=== PATIENT | female | born 1975 | race Caucasian/White ===

== ENCOUNTER 2020-01-19 15:32 | Outpatient (CLI) | payer OTHER, SELFPAY ==
[2020-01-19 15:56] LABS: Basophils Absolute Auto 0.02 K/mm3 (0.00-0.10); Basophils Percent Auto 0.3 % (0.0-1.0); Eosinophils Percent Auto 1.5 % (1.0-6.0); Hematocrit 35.9 % (35.0-49.0); Immature Granulocyte Absolute 0.01 K/mm3 (0.00-0.00); Immature Granulocyte Percent A 0.1 % (0.0-0.0); Lymphocytes Absolute Auto 2.35 K/mm3 (1.10-4.50); Lymphocytes Percent Auto 34.8 % (18.0-42.0); Mean Corpuscular HGB Conc 33.4 g/dL (32.0-36.0); Mean Corpuscular Hemoglobin 32.6 pg (27.0-31.0); Mean Corpuscular Volume 97.6 fL (78.0-102.0); Mean Platelet Volume 8.7 fl (9.2-11.8); Monocytes Absolute Auto 0.42 K/mm3 (0.10-0.90); Monocytes Percent Auto 6.2 % (2.0-11.0); Neutrophils Absolute Auto 3.9 K/mm3 (1.7-7.2); Neutrophils Percent Auto 57.1 % (50.0-70.0); Platelet Count Result 234 K/mm3 (150-420); Red Blood Count 3.68 M/mm3 (4.20-5.40); Red Cell Distribution Width 12.1 % (11.6-14.4); White Blood Count 6.8 K/mm3 (4.8-10.8)
[2020-01-19 16:51] LABS: Alanine Aminotransferase 17 U/L (14-59); Alkaline Phosphatase 57 U/L (46-116); Anion Gap 12.8 mmol/L (7-16); Aspartate Amino Transferase 16 U/L (15-37); Bilirubin,Total 0.2 mg/dL (0.00-1.00); Blood Urea Nitrogen 13 mg/dL (7-18); Carbon Dioxide 29 mmol/L (21-32); Chloride 104 mmol/L (98-108); Estimated Glomerular Filt Rate > 60; Glucose 78 mg/dL (70-99); Osmolality Calculated 293 mOsm/kg (285-295); Potassium 3.8 mmol/L (3.5-5.1); Sodium 142 mmol/L (136-145); Thyroid Stimulating Hormone 0.49 uIU/mL (0.36-3.74); Total Protein 7.2 g/dL (6.4-8.2)
[2020-01-19 16:56] LABS: Calcium 8.6 mg/dL (8.5-10.1)
[2020-01-25 10:30] LABS: Vitamin D 25 Hydroxy 58 ng/mL (30-100)
== END 2020-01-19 15:33 | disposition home or self-care (01) ==
PROVIDERS: PCP Internal Medicine
DX: G35 Multiple sclerosis (principal); G43.119 Migraine with aura, intractable, without status migrainosus; R53.83 Other fatigue; Z79.899 Other long term (current) drug therapy; R42 Dizziness and giddiness
CPT/HCPCS: 36415; 80053; 82306; 84443; 85025

== ENCOUNTER 2020-11-13 08:58 | Outpatient (CLI) | payer OTHER, SELFPAY ==
--- NOTE | ~2020-11-13 | MM_ITS ---
EXAMINATION: MM screening [facility] BI w jenna HISTORY: Screening TECHNIQUE: Craniocaudal and mediolateral oblique 3-D tomosynthesis images were obtained and synthetic 2-D images were generated. CAD analysis was submitted and interpreted. COMPARISON: 01/07/2018 BREAST PARENCHYMAL COMPOSITION: The breasts are heterogeneously dense, which may obscure small masses . FINDINGS: There are developing asymmetries in the upper outer quadrant of the right breast. The left breast is stable without evidence for malignancy. IMPRESSION: 1. Developing asymmetries in the upper inner quadrant of the right breast. 2. Additional mammographic views and possible breast ultrasound are recommended. BI-RADS Category 0: Incomplete: Needs additional imaging evaluation. Reviewed, dictated and finalized at location A. IMPRESSION: 1. Developing asymmetries in the upper inner quadrant of the right breast. 2. Additional mammographic views and possible breast ultrasound are recommended . BI-RADS Category 0: Incomplete: Needs additional imaging evaluation.
== END 2020-11-13 08:59 | disposition home or self-care (01) ==
LOC: CHSIMG 09:00
PROVIDERS: PCP Internal Medicine; Visit Provider Obstetrics & Gynecology
DX: Z12.31 Encounter for screening mammogram for malignant neoplasm of breast (principal)
CPT/HCPCS: 77063; 77067

== ENCOUNTER 2020-11-24 09:50 | Outpatient (CLI) | payer OTHER, SELFPAY ==
--- NOTE | ~2020-11-24 | MMUS_ITS ---
EXAMINATION: MM diagnostic mammo unilat RT, US breast RT limited HISTORY: Possible masses in the upper inner quadrant of the right breast TECHNIQUE: Additional 3-D tomosynthesis images of the right breast were performed and synthetic 2-D i mages were generated. CAD analysis was submitted and interpreted. High resolution limited right breas t ultrasound was performed. COMPARISON: 11/13/2020, 01/07/2018 FINDINGS: MAMMOGRAPHIC FINDINGS: There is a 7 mm oval, obscured, equal density mass in the middle/posterior third of the upper inner b reast at the 2:00 location 5 cm deep to the nipple. With spot compression, this has an appearance sim ilar to the 2018 comparison although the breast was more heterogeneously dense at that time. No suspi cious calcification or architectural distortion are identified. ULTRASOUND: There is an 8 mm x 3 mm oval, circumscribed, parallel, hypoechoic mass with no posterior features or internal vascularity there are cysts at the 1:00 location 7 cm from the nipple. There are cysts in th e upper inner quadrant of the breast which measure up to 8 mm. IMPRESSION: 1. Probably benign right breast mass. 2. Recommend 6 month follow-up right diagnostic mammogram and ultrasound. BI-RADS category 3, probably benign findings. Reviewed, dictated and finalized at location A. IMPRESSION: 1. Probably benign right breast mass. 2. Recommend 6 month follow-up right diagnostic mammogram and ultrasound. BI-RADS category 3, probably benign findings.
== END 2020-11-24 09:51 | disposition home or self-care (01) ==
LOC: CHSIMG 09:52
PROVIDERS: PCP Internal Medicine; Visit Provider Obstetrics & Gynecology
DX: R92.8 Other abnormal and inconclusive findings on diagnostic imaging of breast (principal)
CPT/HCPCS: 76642; 77065

== ENCOUNTER 2021-08-06 15:00 | Outpatient (CLI) | payer OTHER, SELFPAY ==
[2021-08-06 16:45] LABS: Influenza A QL RT-PCR Negative (Negative); Influenza B QL RT-PCR Negative (Negative); SARS-CoV-2 RNA PCR Negative (Negative)
== END 2021-08-06 15:01 | disposition home or self-care (01) ==
LOC: CHSLAB 15:05
PROVIDERS: PCP Internal Medicine; Visit Provider Internal Medicine
DX: J06.9 Acute upper respiratory infection, unspecified (principal); Z20.822 Contact with and (suspected) exposure to COVID-19
CPT/HCPCS: 87502; C9803; U0003; U0005

== ENCOUNTER 2022-01-11 14:31 | Outpatient (CLI) | payer OTHER, SELFPAY ==
--- NOTE | 2022-01-11 15:26 | ECHO_ITS ---
Patient Info Name: Vanda Murphy Age: 46 years : 1975 Gender: Female Ht: 60 in Wt: 109 lbs BSA: 1.45 m2 HR: 72 bpm BP: 112 / 61 mmHg Technical Quality: Good Exam Date: 01/11/2022 2:41 PM Exam Location: [facility] Patient Status: Outpatient Admit Date: 01/11/2022 Staff Ordering Physician: Gildardo Choudhury MD Fish Fryer: Nick Beavers RDCS, RT Attending Provider: Gildardo Cohudhury MD Exam Type: CA echo doppler color flow Study Info Indications R01.1 - Cardiac murmur, unspecified Complete two-dimensional, color flow and Doppler transthoracic echocardiogram is performed. Strain analysis performed. Summary 1. Complete two-dimensional, color flow and Doppler transthoracic echocardiogram is performed. 2. Left ventricular chamber dimension is normal. 3. Left ventricular systolic function is normal, estimated at 60-65%. 4. The left ventricular diastolic function is normal. 5. E/e' 8 is minimally elevated. Left Ventricle E/e' 8 is minimally elevated. Left ventricular chamber dimension is normal. Left ventricular systolic function is normal, estimated at 60-65%. The left ventricular diastolic function is normal. Right Ventricle Right ventricular systolic function is normal and with normal TAPSE 1.7 cm. Right ventricular chamber dimension is normal. Left Atria Left atrial chamber dimension is normal. Right Atria Right atrial chamber dimension is normal. Aortic Valve The aortic valve is trileaflet. There is no aortic valve stenosis. There is no aortic valve regurgitation. Pulmonic Valve There is no pulmonic regurgitation. Mitral Valve There is no mitral valve stenosis. There is no mitral valve regurgitation. Tricuspid Valve There is no tricuspid valve regurgitation. Pericardium/Pleural There is no pericardial effusion. Inferior Vena Cava Normal inferior vena cava with >50% collapse upon inspiration consistent with normal right atrial pressure, 5 mmHg. Aorta The aortic root size at the sinus of Valsalva is normal. Left Ventricular Outflow Tract Name Value Normal LVOT 2D LVOT Diameter 1.9 cm LVOT Doppler LVOT Peak Velocity 81 cm/s LVOT Peak Gradient 3 mmHg LVOT Mean Gradient 1 mmHg LVOT VTI 16 cm LVOT VTI/AV VTI Ratio 0.8 LVOT Stroke Volume 42 ml Mitral Valve Name Value Normal MV Doppler MV [place] 335 cm/s2 MV PHT 61 ms MV Area (PHT) 3.6 cm2 4.0-5.0 MV Diastolic Function MV E Peak Velocity 71 cm/s MV A Peak Velocity 54 cm/s
== END 2022-01-11 14:32 | disposition home or self-care (01) ==
LOC: CHSIMG 14:31
PROVIDERS: PCP Internal Medicine; Visit Provider Internal Medicine
DX: I34.1 Nonrheumatic mitral (valve) prolapse (principal)
CPT/HCPCS: 93306

== ENCOUNTER 2022-10-11 12:49 | Outpatient (CLI) | payer OTHER, SELFPAY ==
--- NOTE | ~2022-10-11 | MR_ITS ---
EXAMINATION: MR thoracic spine wo/w con DATE: 10/11/2022 14:07 INDICATION: Multiple sclerosis. TECHNIQUE: Magnetic resonance imaging (MRI) of the thoracic spine was performed without and with 10 m L MultiHance intravenous contrast. COMPARISON: None FINDINGS: There is 8 degrees dextrocurvature of cervical spine. Vertebral body heights and interverte bral disc heights are normal. The discs do not extend beyond the endplate margins. There is multileve l mild facet joint osteoarthritis. No neural foraminal stenosis or central canal stenosis. The spinal cord signal intensity is normal. The conus medullaris is at L1. There is a 10 mm nodule in the thyro id, likely not clinically significant. IMPRESSION: 1. Normal spinal cord. Reviewed, dictated and finalized at location A. C PROMOTER IMPRESSION: 1. Normal spinal cord.
--- NOTE | ~2022-10-11 | MR_ITS ---
EXAMINATION: MR cervical spine wo/w con DATE: 10/11/2022 14:07 INDICATION: Multiple sclerosis. TECHNIQUE: Magnetic resonance imaging (MRI) of the cervical spine was performed without and with 10 m L MultiHance intravenous contrast. COMPARISON: Cervical spine MRI 11/09/2009 FINDINGS: There is mild kyphosis of cervical spine. Vertebral body heights and intervertebral disc he ights are normal. The spinal cord signal intensity is normal. The following disc levels are specifica lly discussed: C2-C3: There is a central protrusion. There is mild left uncovertebral joint osteoarthritis. There is mild bilateral facet joint osteoarthritis. There is no neural foraminal stenosis. There is mild cent ral canal stenosis. C3-C4: The disc does not extend beyond the endplate margin. There is mild left uncovertebral joint os teoarthritis. There is mild bilateral facet joint osteoarthritis. There is no neural foraminal stenos is. There is no central canal stenosis. C4-C5: The disc does not extend beyond the endplate margin. There is no uncovertebral joint osteoarth ritis. There is mild bilateral facet joint osteoarthritis. There is no neural foraminal stenosis. The re is no central canal stenosis. C5-C6: There is a central extrusion. There is no uncovertebral joint osteoarthritis. There is mild bi lateral facet joint osteoarthritis. There is no neural foraminal stenosis. There is mild central edouard l stenosis. C6-C7: The disc does not extend beyond the endplate margin. There is no uncovertebral joint osteoarth ritis. There is no facet joint osteoarthritis. There is no neural foraminal stenosis. There is no barbie tral canal stenosis. C7-T1: The disc does not extend beyond the endplate margin. There is no uncovertebral joint osteoarth ritis. There is mild bilateral facet joint osteoarthritis. There is no neural foraminal stenosis. The re is no central canal stenosis. IMPRESSION: 1. Normal spinal cord. 2. Mild cervical spondylosis. Reviewed, dictated and finalized at location A. E[employer] INS[employer] CLAIMS EXAMINER
== END 2022-10-11 12:50 | disposition home or self-care (01) ==
LOC: ANHIMG 12:50
PROVIDERS: PCP Internal Medicine
DX: G35 Multiple sclerosis (principal); M47.812 Spondylosis without myelopathy or radiculopathy, cervical region
CPT/HCPCS: 72156; 72157; A9577

== ENCOUNTER 2022-11-15 11:56 | Outpatient (CLI) | payer OTHER, SELFPAY ==
--- NOTE | ~2022-11-15 | MM_ITS ---
EXAMINATION: MM screening [facility] BI w jenna HISTORY: Screening mammogram TECHNIQUE: Craniocaudal and mediolateral oblique 3-D tomosynthesis images were obtained and synthetic 2-D images were generated. CAD analysis was submitted and interpreted. COMPARISON: 11/24/2020 diagnostic right mammogram and limited right breast ultrasound examination 11/13/2020, 01/07/2018 bilateral screening mammogram examinations BREAST PARENCHYMAL COMPOSITION: The breasts are heterogeneously dense, which may obscure small masses . FINDINGS: There is an 8.7 x 9.5 mm circumscribed low-density opacity with halo sign in the lower mid left breast, with mammographic features typical for benign process, likely simple cyst. There is no e vidence of suspicious mass, calcification, or architectural distortion to suggest malignancy in eithe r breast. There has been no suspicious interval change. IMPRESSION: 1. Benign findings. No mammographic evidence of malignancy. 2. Recommend routine screening mammography in one year. BI-RADS Category 2: Benign finding(s). Reviewed, dictated and finalized at location A.
== END 2022-11-15 11:57 | disposition home or self-care (01) ==
LOC: CHSIMG 11:57
PROVIDERS: PCP Internal Medicine; Visit Provider Obstetrics & Gynecology
DX: Z12.31 Encounter for screening mammogram for malignant neoplasm of breast (principal)
CPT/HCPCS: 77063; 77067

== ENCOUNTER 2023-05-19 12:13 | Outpatient (CLI) | payer OTHER, SELFPAY ==
[2023-05-19 12:31] LABS: Appearance Urine Clear (Clear); Basophils Absolute Auto 0.02 K/mm3 (0.00-0.10); Basophils Percent Auto 0.3 % (0.0-1.0); Bilirubin Urine Negative (Negative); Blood Urine Trace-Intact (Negative); Color Urine Light Yellow (Yellow); Eosinophils Absolute Auto 0.28 K/mm3 (0.02-0.50); Eosinophils Percent Auto 4.6 % (1.0-6.0); Glucose Urine UA Negative (Negative); Hematocrit 36.9 % (35.0-49.0); Hemoglobin 12.4 g/dL (12.0-15.0); Immature Granulocyte Absolute 0.01 K/mm3 (0.00-0.00); Immature Granulocyte Percent A 0.2 % (0.0-0.0); Ketones Urine Negative (Negative); Leukocyte Esterase Ur 1+ (Negative); Lymphocytes Percent Auto 42.6 % (18.0-42.0); Mean Corpuscular HGB Conc 33.6 g/dL (32.0-36.0); Mean Corpuscular Hemoglobin 32.3 pg (27.0-31.0); Mean Corpuscular Volume 96.1 fL (78.0-102.0); Mean Platelet Volume 8.3 fl (9.2-11.8); Monocytes Absolute Auto 0.35 K/mm3 (0.10-0.90); Monocytes Percent Auto 5.7 % (2.0-11.0); Neutrophils Absolute Auto 2.8 K/mm3 (1.7-7.2); Neutrophils Percent Auto 46.6 % (50.0-70.0); Nitrate Urine Negative (Negative); Platelet Count Result 226 K/mm3 (150-420); Protein Urine Negative (Negative); Red Blood Count 3.84 M/mm3 (4.20-5.40); Red Cell Distribution Width 12.4 % (11.6-14.4); White Blood Count 6.1 K/mm3 (4.8-10.8)
[2023-05-19 12:37] LABS: Add Urine Microscopic? YES; Squamous Epithelial Cell Urine Moderate /hpf (Few)
[2023-05-19 12:38] LABS: Bacteria Urine 1+ /hpf
[2023-05-19 13:27] LABS: Alanine Aminotransferase 15 U/L (14-59); Albumin Level 4.1 g/dL (3.4-5.0); Alkaline Phosphatase 71 U/L (46-116); Anion Gap 10 mmol/L (8-16); Aspartate Amino Transferase 16 U/L (15-37); Bilirubin,Total 0.3 mg/dL (0.00-1.00); Blood Urea Nitrogen 10 mg/dL (7-18); Carbon Dioxide 29 mmol/L (21-32); Chloride 104 mmol/L (98-108); Cholesterol 188 mg/dL (0-200); Estimated Glomerular Filt Rate > 60; Glucose 80 mg/dL (70-99); HDL Direct 49 mg/dL (40-60); LDL Cholesterol Calculated 111 mg/dL (<130); Osmolality Calculated 294 mOsm/kg (285-295); Potassium 3.7 mmol/L (3.5-5.1); Sodium 143 mmol/L (136-145); Thyroid Stimulating Hormone 0.07 uIU/mL (0.36-3.74); Total Protein 7.5 g/dL (6.4-8.2); Triglycerides 142 mg/dL (0-150)
[2023-05-19 17:38] LABS: Free T3 3.77 pg/mL (2.18-3.98); Free T4 Free Thyroxine 1.23 ng/dL (0.76-1.46)
== END 2023-05-19 12:14 | disposition home or self-care (01) ==
LOC: CHSLAB 12:16
PROVIDERS: PCP Internal Medicine; Visit Provider Internal Medicine
DX: E78.2 Mixed hyperlipidemia (principal); R94.6 Abnormal results of thyroid function studies
CPT/HCPCS: 36415; 80053; 80061; 81001; 84439; 84443; 84481; 85025

== ENCOUNTER 2023-05-23 07:04 | Outpatient (CLI) | payer OTHER, SELFPAY ==
--- NOTE | ~2023-05-23 | US_ITS ---
Thyroid ultrasound. Clinical History: Hyperthyroidism Findings: Real-time sonography of the thyroid gland was performed. The right lobe measures 4.4 x 1.4 x 1.5 cm. The left lobe measures 4.8 x 1.2 x 1.4 cm. The isthmus is 3 mm in AP diameter. There is a mixed solid and cystic, spongiform nodule at the right lower pole measuring 1.6 cm in maxi mum diameter. Impression: 1.6 cm spongiform nodule at the right lower pole, compatible with benign nodule.. Reviewed, dictated and finalized at location M. Impression: 1.6 cm spongiform nodule at the right lower pole, compatible with benign nodule ..
[2023-05-23 07:27] LABS: Appearance Urine Clear (Clear); Bilirubin Urine Negative (Negative); Blood Urine Trace-Intact (Negative); Color Urine Light Yellow (Yellow); Glucose Urine UA Negative (Negative); Ketones Urine Negative (Negative); Leukocyte Esterase Ur Trace (Negative); Nitrate Urine Negative (Negative); Protein Urine Negative (Negative); Specific Grav Ur <= 1.005 (1.010-1.020); Urobilinogen Urine 0.2 mg/dL (0.2-1.0)
[2023-05-23 07:34] LABS: Add Urine Microscopic? YES; Bacteria Urine Trace /hpf; RBC Urine 0-2 /hpf (0-2); Squamous Epithelial Cell Urine Moderate /hpf (Few)
[2023-05-27 04:24] LABS: Thyroid Peroxidase Antibodies <1 IU/mL (<9)
[2023-05-27 13:21] LABS: Thyroid Stimulating Immunoglob <89 % baseline (<140)
== END 2023-05-23 07:05 | disposition home or self-care (01) ==
LOC: CHSIMG 07:07
PROVIDERS: PCP Internal Medicine; Visit Provider Internal Medicine
DX: Z12.31 Encounter for screening mammogram for malignant neoplasm of breast (principal); E05.90 Thyrotoxicosis, unspecified without thyrotoxic crisis or storm; E04.1 Nontoxic single thyroid nodule; R82.90 Unspecified abnormal findings in urine; N39.0 Urinary tract infection, site not specified
CPT/HCPCS: 36415; 76536; 81001; 84445; 86376; 86800; 87086

== ENCOUNTER 2023-06-23 08:47 | Outpatient (CLI) | payer OTHER, SELFPAY ==
[2023-06-23 09:34] LABS: Free T3 4.03 pg/mL (2.18-3.98); Free T4 Free Thyroxine 1.33 ng/dL (0.76-1.46)
[2023-06-23 09:41] LABS: Thyroid Stimulating Hormone < 0.01 uIU/mL (0.36-3.74)
== END 2023-06-23 08:48 | disposition home or self-care (01) ==
LOC: CHSLAB 08:49
PROVIDERS: PCP Internal Medicine; Visit Provider Internal Medicine
DX: E05.90 Thyrotoxicosis, unspecified without thyrotoxic crisis or storm (principal)
CPT/HCPCS: 36415; 84439; 84443; 84481

== ENCOUNTER 2023-07-07 07:24 | Outpatient (CLI) | payer OTHER, SELFPAY ==
--- NOTE | ~2023-07-07 | NM_ITS ---
EXAMINATION: NM thyroid scan w uptake DATE: 07/08/2023 14:53 INDICATION: Hyperthyroidism. Right thyroid lobe nodule. COMPARISON: Ultrasound dated 05/23/2023 TECHNIQUE: 237 microcuries I-123 was administered orally in capsule form. Scintigraphic images of th e thyroid gland were obtained at 24 hours. Thyroid uptake was calculated by the technologist. FINDINGS: The thyroid uptake is 2% (normal 10-30%), there is some asymmetry to the uptake in the thyroid lobes with slightly greater uptake on the right than the left. The uptake in the right lower lobe appears t o involve a significantly larger region than would be explained by the nodule at the lower pole. IMPRESSION: 1. Markedly decreased 24-hour iodine uptake which could be seen with subacute thyroiditis, excess io dine intake and Perla's disease. Reviewed, dictated and finalized at location A. R MAKER IMPRESSION: 1. Markedly decreased 24-hour iodine uptake which could be seen with subacute thyroiditis, excess iodine intake and Perla's disease.
== END 2023-07-07 07:25 | disposition home or self-care (01) ==
LOC: CHSIMG 07:28
PROVIDERS: PCP Internal Medicine; Visit Provider Internal Medicine
DX: E05.90 Thyrotoxicosis, unspecified without thyrotoxic crisis or storm (principal); R91.1 Solitary pulmonary nodule
CPT/HCPCS: 78014; A9516

== ENCOUNTER 2024-05-10 08:15 | Outpatient (CLI) | payer OTHER, SELFPAY ==
--- NOTE | ~2024-05-10 | US_ITS ---
EXAMINATION: US thyroid DATE: 05/10/2024 08:59 INDICATION: Thyroid nodule. TECHNIQUE: Multiple ultrasound images of the thyroid were obtained. COMPARISON: Ultrasound 05/23/2023 FINDINGS: The right thyroid lobe measures 4.0 x 1.6 x 1.7 cm. The left thyroid lobe measures 4.7 x 1.1 x 1.3 c m. In the right thyroid lobe, there is a 17 mm mixed cystic and solid, hypoechoic, wider than tall n odule with smooth margin without echogenic foci (TI-RADS TR3), stable from 05/23/23. IMPRESSION: 1. Stable thyroid nodule. Thyroid ultrasound is recommended in 2 years. Reviewed, dictated and finalized at location A.
--- NOTE | ~2024-05-10 | MM_ITS ---
EXAMINATION: MM screening [facility] BI w jenna HISTORY: Screening mammogram TECHNIQUE: Craniocaudal and mediolateral oblique 3-D tomosynthesis images were obtained and synthetic 2-D images were generated. CAD analysis was submitted and interpreted. COMPARISON: 11/15/2022, 11/13/2020 BREAST PARENCHYMAL COMPOSITION:Dense: The breasts are heterogeneously dense, which may obscure small masses. FINDINGS: Stable low-density central left breast mass. There is a new probable low-density ovoid 1.5 cm mass centrally in the right breast. No suspicious metallic opacification in either breast.. IMPRESSION: Probable 1.5 cm low-density central, slightly inner right breast mass. Spot compression views and ul trasound recommended for further evaluation. BI-RADS Category 0: Incomplete: Needs additional imaging evaluation. Reviewed, dictated and finalized at [facility]. IMPRESSION: Probable 1.5 cm low-density central, slightly inner right breast mass. Spot co mpression views and ultrasound recommended for further evaluation. BI-RADS Category 0: Incomplete: Needs additional imaging evaluation.
[2024-05-10 08:28] LABS: Basophils Absolute Auto 0.04 K/mm3 (0.00-0.10); Basophils Percent Auto 0.4 % (0.0-1.0); Eosinophils Absolute Auto 0.39 K/mm3 (0.02-0.50); Eosinophils Percent Auto 4.2 % (1.0-6.0); Hematocrit 32.4 % (35.0-49.0); Hemoglobin 11.3 g/dL (12.0-15.0); Immature Granulocyte Absolute 0.06 K/mm3 (0.00-0.00); Immature Granulocyte Percent A 0.6 % (0.0-0.0); Lymphocytes Absolute Auto 2.05 K/mm3 (1.10-4.50); Lymphocytes Percent Auto 22.2 % (18.0-42.0); Mean Corpuscular HGB Conc 34.9 g/dL (32-36); Mean Corpuscular Hemoglobin 33.5 pg (27.0-31.0); Mean Corpuscular Volume 96.1 fL (78.0-102.0); Mean Platelet Volume 8.4 fl (9.2-11.8); Monocytes Absolute Auto 0.38 K/mm3 (0.10-0.90); Monocytes Percent Auto 4.1 % (2.0-11.0); Neutrophils Absolute Auto 6.33 K/mm3 (1.70-7.20); Neutrophils Percent Auto 68.5 % (50.0-70.0); Platelet Count Result 231 K/mm3 (150-420); Red Blood Count 3.37 M/mm3 (4.20-5.40); Red Cell Distribution Width 12.6 % (11.6-14.4); White Blood Count 9.3 K/mm3 (4.8-10.8)
[2024-05-10 17:06] LABS: Alanine Aminotransferase 19 U/L (14-59); Albumin Level 3.8 g/dL (3.4-5.0); Alkaline Phosphatase 66 U/L (46-116); Anion Gap 8 mmol/L (4-12); Aspartate Amino Transferase 20 U/L (15-37); Bilirubin,Total 0.3 mg/dL (0.00-1.00); Blood Urea Nitrogen 8 mg/dL (7-18); Calcium 8.8 mg/dL (8.5-10.1); Carbon Dioxide 29 mmol/L (21-32); Chloride 105 mmol/L (98-108); Estimated Glomerular Filt Rate > 60; Free T3 2.07 pg/mL (2.18-3.98); Free T4 Free Thyroxine 0.86 ng/dL (0.76-1.46); Glucose 80 mg/dL (70-99); Osmolality Calculated 291 mOsm/kg (285-295); Potassium 3.9 mmol/L (3.5-5.1); Sodium 142 mmol/L (136-145); Thyroid Stimulating Hormone 0.91 uIU/mL (0.36-3.74); Total Protein 6.8 g/dL (6.4-8.2)
[2024-05-13 07:48] LABS: Thyroid Peroxidase Antibodies <1 IU/mL (<9)
== END 2024-05-10 08:16 | disposition home or self-care (01) ==
PROVIDERS: PCP Internal Medicine; Visit Provider Nurse Practitioner Women's Health
DX: Z12.31 Encounter for screening mammogram for malignant neoplasm of breast (principal); E04.1 Nontoxic single thyroid nodule; R92.8 Other abnormal and inconclusive findings on diagnostic imaging of breast
CPT/HCPCS: 36415; 76536; 77063; 77067; 80053; 84439; 84443; 84481; 85025; 86376

== ENCOUNTER 2024-06-04 08:52 | Outpatient (CLI) | payer OTHER, SELFPAY ==
--- NOTE | ~2024-06-04 | MMUS_ITS ---
EXAMINATION: MM diagnostic kvng RT w jenna, US breast RT complete HISTORY: Follow-up right breast mass TECHNIQUE: Additional 3-D tomosynthesis images of the right breast were performed and synthetic 2-D i mages were generated. CAD analysis was submitted and interpreted. High resolution complete right [address] [facility] ultrasound was performed. COMPARISON: Comparison to multiple prior studies sequentially, with oldest reviewed study dated 05/2018. BREAST PARENCHYMAL COMPOSITION: Dense: The breasts are heterogeneously dense, which may obscure small masses FINDINGS: MAMMOGRAPHIC FINDINGS: There is an obscured mass in the upper inner quadrant of the right breast, posterior third which is o bscured by dense fibroglandular tissue. There are no suspicious calcifications or architectural disto rtion. ULTRASOUND: Complete US of all 4 quadrants of the right breast/s and retroareolar region was reviewed. There are multiple cysts of the right breast, largest at 1:00 near the nipple measuring 3.6 x 2.2 x 1.2 cm, lik alesha corresponding to the area of mammographic concern. No suspicious solid masses are identified. IMPRESSION: 1. No evidence for malignancy in the right breast. Benign findings. 2. Routine yearly screening mammogram and regular clinical breast examination are recommended. BI-RADS Category 2: Benign finding(s). Reviewed, dictated and finalized at location B. IMPRESSION: 1. No evidence for malignancy in the right breast. Benign findings. 2. Routine yearly screening mammogram and regular clinical breast examination a re recommended. BI-RADS Category 2: Benign finding(s).
== END 2024-06-04 08:53 | disposition home or self-care (01) ==
PROVIDERS: PCP Internal Medicine; Visit Provider Nurse Practitioner Women's Health
DX: R92.8 Other abnormal and inconclusive findings on diagnostic imaging of breast (principal)
CPT/HCPCS: 76641; 77061; 77065; G0279

== ENCOUNTER 2024-07-26 08:52 | Outpatient (CLI) | payer OTHER, SELFPAY ==
--- NOTE | ~2024-07-26 | MR_ITS ---
EXAMINATION: MR brain/brain stem wo/w con DATE: 07/26/2024 09:45 INDICATION: Multiple sclerosis. TECHNIQUE: Magnetic resonance imaging (MRI) of the brain and brainstem was performed without and with 10 mL MultiHance intravenous contrast. COMPARISON: None. FINDINGS: There are greater than 15 total lesions of increased T2-weighted signal intensity in the br ain. Of these lesions, multiple are periventricular, multiple are juxtacortical, and none are infrate ntorial. None of the lesions enhance. There is a developmental venous anomaly in the right frontopari etal region. There is no acute ischemic infarct or intracranial hemorrhage. The ventricles are normal in size. The orbits are normal. There is mucosal thickening in the paranasal sinuses. There is depen dent fluid in the maxillary sinuses. The mastoid air cells are normal. IMPRESSION: 1. Cerebral white matter disease, consistent with multiple sclerosis. Reviewed, dictated and finalized at location A. ID CORN BREEDER
== END 2024-07-26 08:53 | disposition home or self-care (01) ==
PROVIDERS: PCP Internal Medicine
DX: R90.82 White matter disease, unspecified (principal); G35 Multiple sclerosis
CPT/HCPCS: 70553

== ENCOUNTER 2025-05-09 15:39 | Outpatient (CLI) | payer OTHER, SELFPAY ==
--- NOTE | ~2025-05-09 | MR_ITS ---
EXAMINATION: MR brain/brain stem wo/w con DATE: 05/09/2025 17:21 INDICATION: Multiple sclerosis. TECHNIQUE: Magnetic resonance imaging (MRI) of the brain and brainstem was performed without and with 11 mL MultiHance intravenous contrast. COMPARISON: Brain MRI 07/26/2024 FINDINGS: There is no acute ischemic infarct or intracranial hemorrhage. There are greater than 15 lesions of increased T2-weighted signal intensity in the brain. Of these lesions, multiple are periventricular, multiple are juxtacortical, and none are infratentorial. None of the lesions enhance. There is a developmental venous anomaly in the right frontoparietal region. The ventricles are normal in size. The orbits are normal. There is mucosal thickening in the paranasal sinuses. There is dependent fluid in left maxillary sinus. The mastoid air cells are normal. IMPRESSION: 1. Stable cerebral white matter disease, consistent with multiple sclerosis. Reviewed, dictated and finalized at location E.
--- NOTE | ~2025-05-09 | US_ITS ---
EXAMINATION: US thyroid DATE: 05/09/2025 16:31 INDICATION: Right thyroid nodule TECHNIQUE: Multiple ultrasound images of the thyroid were obtained. COMPARISON: 05/10/2024 FINDINGS: The right thyroid lobe measures 4.2 x 1.6 x 1.4 cm. The left thyroid lobe measures 4.3 x 1.5 x 1.0 cm. No significant change in size 1.9 cm wider than tall now nearly entirely cystic nodule with residual small hypoechoic solid component, smooth margins and without echogenic foci (TI-RADS 2, not suspicious, no FNA recommended). No new thyroid nodules identified. There is normal echotexture, echogenicity and vascular flow throughout the remainder of the thyroid gland. IMPRESSION: 1. Interval evolution of a 1.9 cm previously mixed solid and cystic TI RADS 3, currently nearly entirely cystic TI RADS 2 right thyroid nodule which requires no further follow-up or biopsy Reviewed, dictated and finalized at location A.
--- OUTSIDE RECORDS SUMMARY | 2025-05-09 15:47 | XMS_ITS | Clinical Summary ---
Author Organization [facility] B Address [address] [place] [address] Care Team Providers Care Particle Board Supervisor Name Role Phone Gildardo Choudhury MD Primary Care Provider [phone] Tonya Camacho MD Unavailable [phone] Allergies No known active allergies Medications ALPRAZolam (Xanax) 0.25 mg tablet Take 1 tablet (0.25 mg total) by mouth nightly as needed for anxiety 30 tablet 03/29/2020 Active ergocalciferol (VITAMIN D) 50,000 unit capsule Take 1 capsule (50,000 Units total) by mouth once a week 4 capsule 5 02/12/2023 Active Glatopa 40 mg/mL syringe INJECT 1 SYRINGE UNDER THE SKIN 3 TIMES A WEEK AT LEAST 48 HOURS APART 36 mL 1 01/11/2025 Active dextroamphetami ne-amphetamine (ADDERALL) 5 mg tablet Take 1 tablet (5 mg total) by mouth every morning 30 tablet 03/28/2025 Active Active Problems Problem Noted Date Diagnosed Date Mood disorder 03/29/2020 Vertigo 03/26/2019 Dizziness and giddiness 01/27/2018 Other fatigue 01/27/2018 Intractable migraine with aura without status mi grainosus 08/03/2013 Overview (12/06/2016): Migraine headache Multiple sclerosis 08/03/2013 Overview (08/13/2024): MS medication history: RRMS Symptom onset and diagnosis: 2009 1. Copaxone: 01/[id number] 2. Glatiramer acetate: 2020- Assessment & Plan (03/28/2025 11:45 AM CDT): The patient is presenting for follow up of multiple sclerosis. She reports that since her last visit she has been largely stable with no significant new neurological symptoms. She continues to take glatiramer acetate and reports no issues or side effects with the medication. She reports prominent ongoing fatigue which she describes as feeling tired all the time. She previously trialed modafinil which provided some relief but she was unable to continue it given insurance issues. She reports no other new notable symptoms and specifically denies any weakness and numbness. Her neurological exam shows no new neurological deficits. We discussed ongoing management of her multiple sclerosis. We reviewed her 2023 MRI compared to January 2022 MRI. In comparison, her 2023 MRI shows a new lesion in her right basal ganglia area and an increase in T2 signal in her left occipital lobe periatrial lesion. We discussed that it is possible she is having ongoing disease activity related to her MS that is not well-controlled with glatiramer acetate. I recommended changing to a medication with higher clinical efficacy for reducing relapses and new brain lesions. We discussed different categories of medication and specifically talked about CD20 medications, Ocrevus and Briumvi and oral medications, Zeposia and Vumerity. We discussed the side effects of all these different medications including infusion related reactions, increased risk of infection, heart block, flushing, and GI upset. I will provide the patient with pamphlets on these different medications instructed her to reach out if any questions come up. We discussed ongoing medication management for the patient's fatigue. Given her benefit from modafinil in the past I suspect she will benefit from fatigue treatment. We discussed Adderall as an option but acknowledged that she may also run a new insurance issues with this medication. I will send the prescription to the patient's pharmacy and start her on a low dose with plans to increase if she is experiencing a benefit without notable side effects. I will obtain an updated brain and cervical MRI in anticipation of starting a new disease modifying therapy. I will see the patient back in follow up and instructed her to reach out if any questions arise before next visit. We will obtain lab work today in preparation for starting a new disease modifying therapy. Will continue Xanax 0.25 mg as needed for the patient's anxiety which she reportedly takes infrequently. Anxiety disorder 08/03/2013 Overview (12/06/2016): Anxiety disorder Encounters Date Type Department Care Team Description 05/[place]2025 [place] [facility] [place] [address] [address] Jh Rodriguez MD 04/29/2025 [place] [facility] [place] [address] [address] Jh Rodriguez MD 04/11/2025 [place] [facility] [place] [address] [phone] Sarai Mccarty RN 03/28/2025 12:00 PM CDT Lab [address] [address] Vitamin D deficiency; Multiple sclerosis (HCC); Screening for viral disease 03/28/2025 11:00 AM CDT Office Visit [address] [address] Jh Rodriguez MD Multiple sclerosis (HCC) (Primary Dx); Vitamin D deficiency; Screening for viral disease from Last 3 Months Medical History Medical History Date Comments Multiple sclerosis (HCC) multipl e sclerosis Hx Other Medical anxiety disorde r Hx Other Medical vitamin D defic iency Hx Other Medical Headache, migra ine Family History Medical History Relation Name Comments Ovarian teratoma Cousin Squamous cell carcinoma Maternal Grandfather Oral Other Other No family histo ry of Multiple sclerosis; Relation Name Status Comments Cousin Maternal Grandfather Other Social History Tobacco Use Types Packs/Day Years Used Date Smoking Tobacco: Former Smokeless Tobacco: Former Tobacco Cessation:Counseling Given: Not Answered Comments:quit 05-17-2018 Alcohol Use Standard Drinks/Week Comments Yes 0 (1 standard drink = 0.6 oz pur e alcohol) occassional AUDIT-C Answer Date Recorded Q1: How often do you have a drink containing alc ohol? Monthly or less 07/30/2022 Average Number of Drinks Not on file 022 Q3: How often do you have si x or more drinks on one occasion? 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 Gender Identity Not on file Sexual Orientation Not on file Obstetrics History Last Filed Vital Signs Vital Sign Reading Time Taken Comments Blood Pressure 111/69 03/28/2025 10:33 AM CDT Pulse 73 03/28/2025 10:33 AM CDT Temperature 36.2 C (97.1 F) 03/28/2025 10:33 AM CDT Respiratory Rate 16 02/18/2022 10:42 AM CDT Oxygen Saturation 99% 03/28/2025 10:33 AM CDT Inhaled Oxygen Concentration - - Weight 54.4 kg (120 lb) 03/28/2025 10:33 AM CDT Height 152.4 cm (5') 03/28/2025 10:33 AM CDT Body Mass Index 23.44 03/28/2025 10:33 AM CDT Plan of Treatment Health Maintenance Due Date Last Done Comments Cervical Cancer Screening 1976 Colon Cancer Screening-Colonoscopy 1976 Depression Screening 1976 DTaP/Tdap/Td Vaccine (1 - Tdap) 1987 Hepatitis B Screening 1994 Regular Well Visit/Exam 18-64 1994 Breast Cancer Screening-Mammogram 10/22/2022 022 Influenza Vaccine (#1) 2025 Hepatitis C Screening Completed 03/28/2025 Pneumococcal vaccine <65 Aged Out No longer eligible based on patient's age to complete this topic Procedures Procedure Name Priority Date/Time Associated Diagnosis Comments REFLEX STRATIFY JCV AB INHIBITION Routine 03/28/2025 12:02 PM CDT EGFR Routine 03/28/2025 12:02 PM CDT Multiple sclerosis (HCC) DIFFERENTIAL AUTO Routine 03/28/2025 12: 02 PM CDT Multiple sclerosis (HCC) CBC WITH AUTO DIFFERENTIAL Routine 03/28/2025 12:02 PM CDT Multiple sclerosis (HCC) COMPREHENSIVE METABOLIC PANEL Routine 03/28/2025 12:02 PM CDT Multiple sclerosis (HCC) IMMUNOGLOBULIN PROFILE Routine 03/28/2025 12:02 PM CDT Multiple sclerosis (HCC) STRATIFY JCV(TM) AB W/REFLEX Routine 03/28/2025 12:02 PM CDT Multiple sclerosis (HCC) TB TEST, QUANTIFERON GOLD Routine 03/28/2025 12:02 PM CDT Multiple sclerosis (HCC) VITAMIN D 25 HYDROXY Routine 03/28/2025 12:02 PM CDT Vitamin D deficiency HEPATITIS B CORE ANTIBODY, TOTAL Routine 03/28/2025 12:02 PM CDT Screening for viral disease HEPATITIS PANEL, ACUTE Routine 03/28/2025 12:02 PM CDT Multiple sclerosis (HCC) VARICELLA ZOSTER ANTIBODY, IGG Routine 03/28/2025 12:02 PM CDT Multiple sclerosis (HCC) DIAGNOSTIC MAMMOGRAM BILATERAL W ANDERSON Schedule Routine, Read Routine (OP Routine) 10/22/2021 12:18 PM RETURNED ITEM CLERK Abnormal finding on breast imaging from Last 3 Months or Most Recently Relevant to Health Maintenance Results * REFLEX STRATIFY JCV AB INHIBITION (03/28/2025 12:02 PM CDT) JCV ab inhibition FINAL RSLT: NEGATIVE [facility] Comment: REFERENCE RANGE: NEGATIVE INTERPRETATION: Positive: Antibodies to JEWELL virus (JCV) detected indicating the patient has been exposed to JCV at an undetermined time Negative: Antibodies to JCV not detected Test Performed at: [employer] [address] [place] [address] PHIL LYON MD,PHD,VANESA Blood 03/28/2025 12:0 2 PM CDT 03/28/2025 3:16 PM CDT Jh Rodriguez MD LAB BLOOD ORDERABLES Final Result [facility] [address] Department [place] [address] [facility] * Immunoglobulin profile (03/28/2025 12:02 PM CDT) Pathologist [facility] Immunoglobulin G 1,024 700 - 1,600 mg/dL Immunoglobulin A 171 70 - 400 mg/dL [facility] Immunoglobulin M 68 40 - 230 mg/dL [facility] Blood 03/28/2025 12:0 2 PM CDT 03/28/2025 3:16 PM CDT Jh Rodriguez MD LAB BLOOD ORDERABLES Final Result Performing Organization Address City/[facility] Co de Phone Number [facility] [address] Department [place] [address] * eGFR (03/28/2025 12:02 PM CDT) [facility] eGFR >90 >=60 mL/min/1. 73 m2 Comment: Interpretive Data Reference Interval Normal >/= 90 mL/min/1.73m2 Mildly decreased* 60 - 89 mL/min/1.73m2 Mildly to moderately decreased 45 - 59 mL/min/1.73m2 Moderately to severely decreased 30 - 44 mL/min/1.73m2 Severely decreased 15 - 29 mL/min/1.73m2 Kidney Failure < 15 mL/min/1.73m2 *Relative to young adult level Estimated glomerular filtration rate is determined by the 2020 CKD-EPI equation recommended by the National Kidney Foundation (A Unifying Approach to GFR Estimation: Recommendations of the NKF-ASK Task Force on Reassessing the Inclusion of Race in Diagnosing Kidney Disease, JASN 2020). The CKD-EPI equation should not be used for patients with unstable renal function and has not been validated in children and those over 70. Current interpretive data was last reviewed 2021. Blood 03/28/2025 12:0 2 PM CDT 03/28/2025 3:16 PM CDT Jh Rodriguez MD LAB BLOOD ORDERABLES Final Result [facility] [address] Department [place] [address] * Differential, auto (03/28/2025 12:02 PM CDT) Neutrophil abs 3.94 1.50 - 6.50 K/cumm Imm gran abs 0.01 0.00 - 0.10 K/cumm [facility] Lymphocyte abs 2.42 0.80 - 3.30 K/cumm [facility] Monocyte abs 0.36 0.20 - 0.80 K/cumm [facility] Eosinophil abs 0.26 0.00 - 0.50 K/cumm [facility] Basophil abs 0.03 0.00 - 0.10 K/cumm [facility] Neutrophil pct 56.2 % [facility] Comment: Interpretive Data Percent cell count reference ranges are not reported, since discordance with absolute values may lead to misinterpretation of CBC data. Current Interpretive Data was last revised on 2017. Imm gran pct 0.1 % [facility] Comment: Interpretive Data Percent cell count reference ranges are not reported, since discordance with absolute values may lead to misinterpretation of CBC data. Current Interpretive Data was last revised on 2017. Lymphocyte pct 34.5 % [facility] Comment: Interpretive Data Percent cell count reference ranges are not reported, since discordance with absolute values may lead to misinterpretation of CBC data. Current Interpretive Data was last revised on 2017. Monocyte pct 5.1 % [facility] Comment: Interpretive Data Percent cell count reference ranges are not reported, since discordance with absolute values may lead to misinterpretation of CBC data. Current Interpretive Data was last revised on 2017. Eosinophil pct 3.7 % [facility] Comment: Interpretive Data Percent cell count reference ranges are not reported, since discordance with absolute values may lead to misinterpretation of CBC data. Current Interpretive Data was last revised on 2017. Basophil pct 0.4 % [facility] Comment: Interpretive Data Percent cell count reference ranges are not reported, since discordance with absolute values may lead to misinterpretation of CBC data. Current Interpretive Data was last revised on 2017. Blood 03/28/2025 12:0 2 PM CDT 03/28/2025 3:12 PM CDT us Jh Rodriguez MD LAB BLOOD ORDERABLES Final Result [facility] [address] Department of [employer] [place] [address] * (ABNORMAL) Stratify JCV(TM) antibody w/ reflex (03/28/2025 12:02 PM CDT) JCV Antibody INDETERMI DAWNA(A) [facility] Comment: See Inhibition Assay result below for the final antibody result. Index interpretive criteria: <0.20 negative 0.20-0.40 indeterminate >0.40 positive INTERPRETATION Negative: Antibodies to JCV not detected. Indeterminate: Low level reactivity detected, see Inhibition Assay result below for the final antibody result. Positive: Antibodies to JEWELL virus (JCV) detected indicating the patient has been exposed to JCV at an undetermined time. The STRATIFY JCV(R) DxSelect(TM) Antibody Test is an enzyme-linked immunosorbent assay (ASIF) designed to detect JCV antibodies to help identify individuals who have been exposed to the virus. Samples with low level reactivity in the detection assay are retested in a confirmation (inhibition) assay to confirm presence or absence of JCV-specific antibodies. Retrospective analyses of post marketing data from various sources, including observational studies and spontaneous reports obtained worldwide, suggest that the risk of developing PML may be associated with relative levels of serum anti-JCV antibody as measured by anti-JCV antibody index.(1) (1) TYSABRI(natalizumab)US Prescribing Information Test Performed at: [facility] [employer] [facility] [employer] [facility] [address] [place] [address] PHIL LYON MD,PHD,VANESA JCV Index Value 0.26(H) [facility] Blood 03/28/2025 12:0 2 PM CDT 03/28/2025 3:16 PM CDT Jh Rodriguez MD LAB BLOOD ORDERABLES Final Result Performing Organization Address City/[facility]/ZIP Co de Phone Number [facility] [address] Department [place] [address] [facility] * TB test, quantiferon gold (03/28/2025 12:02 PM CDT) [facility] Quantiferon TB Gold Negative Negative [facility] Comment: No interferon-gamma response to M. tuberculosis antigens was detected. Latent infection with M. tuberculosis is unlikely. A single negative result does not exclude infection with M. tuberculosis. In patients at high risk for M.tuberculosis infection, a second test should be considered in accordance with the 2017 ATS/IDSA/CDC Clinical Practice Guidelines for Diagnosis of Tuberculosis in Adults and Children [Lewinsohn DM et. al. Clin. Infect. Dis. 2017;64(2):111-115]. The reference range for the 'TB1 Ag minus Nil Result' and 'TB2 Ag minus Nil Result' is an Interferon-gamma level <0.35 IU/mL. TB-Nil 0.01 IUnits/mL [facility] TB2-Nil 0.01 IUnits/mL [facility] Mitogen-Nil 9.96 IUnits/mL [facility] NIL 0.04 IUnits/mL [facility] Comment: Test Performed by: [place] [address] Freedom Of Information Officer: Jimmy Boyd Ph.D.; CLIA# [id number] Blood 03/28/2025 12:0 2 PM CDT 03/29/2025 8:57 AM CDT Jh Rodriguez MD LAB BLOOD ORDERABLES Final Result Performing Organization Address [facility]/ZIP Co de Phone Number [facility] [address] Department [place] [address] [facility] * (ABNORMAL) CBC with auto differential (03/28/2025 12:02 PM CDT) [facility] WBC 7.02 3.80 - 9.90 K/cumm Hgb 11.7(L) 11.9 - 15.5 g/dL [facility] Hct 34.4(L) 35.6 - 45.5 % [facility] Plt 290 150 - 400 K/cumm [facility] MPV 8.7(L) 9.1 - 12.3 fL [facility] RBC 3.58(L) 3.90 - 5.20 M/cumm [facility] MCV 96.1 81.3 - 96.4 fL [facility] MCH 32.7 27.1 - 33.3 pg [facility] MCHC 34.0 32.3 - 35.7 g/dL [facility] RDW CV 12.6 11.1 - 14.9 % [facility] RDW SD 44.0 35.7 - 48.1 fL [facility] NRBC abs 0.00 0.00 - 0.01 K/cumm [facility] Blood 03/28/2025 12:0 2 PM CDT 03/28/2025 3:12 PM CDT Jh Rodriguez MD LAB BLOOD ORDERABLES Final Result [facility] [address] Department [place] [address] * Hepatitis panel, acute Blood (03/28/2025 12:02 PM CDT) [facility] Hep A IgM Nonreactive Nonreactive Comment: Interpretive Data: If Hep A IgM Ab is reported as Equivocal, a new sample should be drawn in two weeks for testing. Current interpretive data was last revised on 19. Hep B core IgM Nonreactive Nonreactive [facility] Comment: Interpretive Data If HepB Core IgM Ab is reported as Equivocal, a new sample should be drawn in two weeks for testing. Current interpretive data was last revised on 19. Hep C Ab Nonreactive Nonreactive [facility] Comment: Interpretive Data Nonreactive: Antibodies to HCV not detected. Does NOT exclude the possibility of recent exposure to HCV. Equivocal: Equivocal for HCV antibodies. Supplemental molecular testing will be automatically performed to determine infection status in accordance with current CDC screening recommendations. Reactive: Positive for HCV antibodies. This may represent current or past HCV infection. Supplemental molecular testing will be automatically performed to determine current infection status in accordance with current CDC screening recommendations. Interpretive data was last revised on 2019. HepBsAg Nonreactive Nonreactive [facility] Blood 03/28/2025 12:0 2 PM CDT 03/28/2025 3:14 PM CDT Jh Rodriguez MD LAB MICROBIOLOGY - GE NERAL ORDERABLES Final Result Performing Organization Address City/[facility]/ZIP Co de Phone Number [facility] [address] Department [place] [address] * Hepatitis B core antibody, total Blood (03/28/2025 12:02 PM CDT) Pathologist [facility] Hep B core IgG/IgM Nonreactive Nonreactive Comment:Testing performed by : [facility], [address] [place]., [address] Blood 03/28/2025 12:0 2 PM CDT 03/28/2025 7:16 PM CDT Jh Rodriguez MD LAB MICROBIOLOGY - GE NERAL ORDERABLES Final Result [facility] [address] Department of [employer] [place] [address] * Vitamin D 25 hydroxy (03/28/2025 12:02 PM CDT) Vitamin D 25-OH 44 30 - 80 ng/mL Blood 03/28/2025 12:0 2 PM CDT 03/28/2025 3:16 PM CDT Jh Rodriguez MD LAB BLOOD ORDERABLES Final Result Performing Organization Address City/[facility]/ZIP Co de Phone Number [facility] [address] [facility] [employer] [place] [address] * Varicella Zoster IgG antibody Blood (03/28/2025 12:02 PM CDT) [facility] VZV IgG Reactive Reactive Comment: Reactive: Results suggest response to immunization or prior exposure to the virus. Testing performed by: [facility], [address] [place] [address]., [address] Blood 03/28/2025 12:0 2 PM CDT 03/28/2025 7:16 PM CDT Jh Rodriguez MD LAB MICROBIOLOGY - GE NERAL ORDERABLES Final Result Performing Organization Address [facility] Co de Phone Number [facility] [address] Department of [employer] [place] [address] * (ABNORMAL) Comprehensive metabolic panel (03/28/2025 12:02 PM CDT) [facility] Sodium 141 135 - 145 mmol/L Potassium, pl 4.2 3.3 - 4.9 mmol/L [facility] Chloride 105 97 - 110 mmol/L [facility] CO2 24 22 - 32 mmol/L [facility] Anion gap 12 2 - 15 mmol/L [facility] BUN 8 6 - 25 mg/dL [facility] Creatinine 0.49(L) 0.60 - 1.10 mg/dL [facility] Glucose 78 70 - 199 mg/dL [facility] Comment: Interpretive Data Fasting glucose >/= 126 mg/dl is diagnostic for diabetes. Fasting is defined as no caloric intake for at least 8 hours. Fasting glucose between 100 mg/dl to 125 mg/dl is diagnostic of prediabetes. In a patient with classic symptoms of hyperglycemia or hyperglycemic crisis, a random glucose >/= 200 mg/dl is diagnostic for diabetes. In the absence of unequivocal hyperglycemia, results should be confirmed by repeat testing. The classification and Diagnosis of Diabetes Diabetes Care 2021; 46: S19-S40. Current interpretive data was last revised 2022. Calcium 9.6 8.5 - 10.3 mg/dL [facility] Bilirubin, total 0.3 0.1 - 1.2 mg/dL [facility] Protein, pl 7.4 6.5 - 8.5 g/dL [facility] Albumin 4.5 3.5 - 5.0 g/dL [facility] Alk phos 72 40 - 130 Units/L [facility] ALT 21 7 - 45 Units/L [facility] AST 29 10 - 45 Units/L [facility] Blood 03/28/2025 12:0 2 PM CDT 03/28/2025 3:16 PM CDT us Jh Rodriguez MD LAB BLOOD ORDERABLES Final Result [facility] [address] Department [place] [address] * Diagnostic Mammogram Bilateral W Anderson (10/22/2021 12:18 PM RETURNED ITEM CLERK) Anatomical Region Laterality Modality Breast Bilateral Mammography 10/22/2021 12:4 6 PM RETURNED ITEM CLERK Impressions 10/22/2021 12:54 PM RETURNED ITEM CLERK 1. Stable RIGHT breast mass which may represent a cluster of cysts. Recommend follow-up ultrasound in 12 months to document continued stability. 2. No evidence of malignancy in the LEFT breast. OVERALL FINAL ASSESSMENT: BI-RADS Category 3: Probably Benign. RECOMMENDATION: Recommend follow-up diagnostic breast imaging in 12 months with targeted RIGHT breast ultrasound. Please note, at this time, patient will be due for annual BILATERAL examination. Dictated by: Su Castelan MD The radiology attending physician has personally reviewed this study, and had reviewed and/or edited this written report and agrees with it. Electronically signed by: Daly Bates M.D. Narrative 10/22/2021 12:54 PM RETURNED ITEM CLERK EXAMINATION: BILATERAL DIGITAL DIAGNOSTIC MAMMOGRAM INCLUDING CAD AND BILATERAL DIGITAL BREAST TOMOSYNTHESIS; RIGHT BREAST SONOGRAM HISTORY: 46-year-old woman presents for 10 month follow-up of probably benign RIGHT breast mass. She is also due for her annual BILATERAL examination. COMPARISON: Prior mammograms dating back to 01/07/2018. Right breast ultrasound 01/01/2021. TECHNIQUE: Full field digital mammographic views of BOTH breasts were performed, including computer aided detection (CAD) and BILATERAL digital breast tomosynthesis (DBT). Directed ultrasound evaluation of the RIGHT breast was performed. BREAST PARENCHYMAL COMPOSITION: The breasts are extremely dense, which lowers the sensitivity of mammography. MAMMOGRAM FINDINGS: There are no suspicious masses, areas of architectural distortion or malignant appearing calcifications identified in EITHER breast. There are bilateral, round and oval, partially circumscribed and partially obscured masses, a benign mammographic pattern. SONOGRAM FINDINGS: Targeted sonographic evaluation of the RIGHT breast 1 o'clock position 7 cm from the nipple demonstrates a stable oval hypoechoic/anechoic mass with absent internal vascularity and mild posterior acoustic enhancement measuring 0.7 x 0.3 x 0.8 cm, previously measuring 0.6 x 0.3 x 0.7 cm. Procedure Note Daly Bates MD - 10/22/2021 EXAMINATION: BILATERAL DIGITAL DIAGNOSTIC MAMMOGRAM INCLUDING CAD AND BILATERAL DIGITAL BREAST TOMOSYNTHESIS; RIGHT BREAST SONOGRAM HISTORY: 46-year-old woman presents for 10 month follow-up of probably benign RIGHT breast mass. She is also due for her annual BILATERAL examination. COMPARISON: Prior mammograms dating back to 01/07/2018. Right breast ultrasound 01/01/2021. TECHNIQUE: Full field digital mammographic views of BOTH breasts were performed, including computer aided detection (CAD) and BILATERAL digital breast tomosynthesis (DBT). Directed ultrasound evaluation of the RIGHT breast was performed. BREAST PARENCHYMAL COMPOSITION: The breasts are extremely dense, which lowers the sensitivity of mammography. MAMMOGRAM FINDINGS: There are no suspicious masses, areas of architectural distortion or malignant appearing calcifications identified in EITHER breast. There are bilateral, round and oval, partially circumscribed and partially obscured masses, a benign mammographic pattern. SONOGRAM FINDINGS: Targeted sonographic evaluation of the RIGHT breast 1 o'clock position 7 cm from the nipple demonstrates a stable oval hypoechoic/anechoic mass with absent internal vascularity and mild posterior acoustic enhancement measuring 0.7 x 0.3 x 0.8 cm, previously measuring 0.6 x 0.3 x 0.7 cm. IMPRESSION: 1. Stable RIGHT breast mass which may represent a cluster of cysts. Recommend follow-up ultrasound in 12 months to document continued stability. 2. No evidence of malignancy in the LEFT breast. OVERALL FINAL ASSESSMENT: BI-RADS Category 3: Probably Benign. RECOMMENDATION: Recommend follow-up diagnostic breast imaging in 12 months with targeted RIGHT breast ultrasound. Please note, at this time, patient will be due for annual BILATERAL examination. Dictated by: Su Castelan MD The radiology attending physician has personally reviewed this study, and had reviewed and/or edited this written report and agrees with it. Electronically signed by: Daly Bates M.D. Sheridan Rooney MD PhD IMG MAMMO PROCEDURES Final Result from Last 3 Months or Most Recently Relevant to Health Maintenance Insurance [facility] Care Teams Particle Board Supervisor Relationship Specialty Start Date End Date Gildardo Choudhury MD PCP - General Internal Medicine 01/27/18 Tonya Camacho MD [id number] [facility] [address] [place] [address] Referring Physician Obstetrics and Gynecology 11/27/20
--- OUTSIDE RECORDS SUMMARY | 2025-05-09 15:47 | XMS_ITS | Clinical Summary ---
Author Organization [facility] Address [address] [place] [id number] Care Team Providers Care Airport Security Screener Name Role Phone Unavailable Primary Care Provider Unavailabl e Social History Tobacco Use Types Packs/Day Years Used Date Smoking Tobacco: Never Assessed Comments Unknown Sex and Gender Information Value Date Recorded Sex Assigned at Not on file Legal Sex Female 5:15 PM CDT Gender Identity Not on file Sexual Orientation Not on file Last Filed Vital Signs Vital Sign Reading Time Taken Comments Blood Pressure 110/60 08/19/2016 10:58 AM [facility]UST PROOFER Pulse 99 08/19/2016 10:58 AM [facility] PROOFER Temperature - - Respiratory Rate - - Oxygen Saturation - - Inhaled Oxygen Concentration - - Weight 47.6 kg (105 lb) 08/19/2016 10:58 AM RUST PROOFER Height 152.4 cm (5') 08/19/2016 10:58 AM R[facility] PROOFER Body Mass Index 20.51 08/19/2016 10:58 AM RUST PROOFER Plan of Treatment Health Maintenance Due Date Last Done Comments Cervical Cancer Screening Pa p Smear (Age 30 to 64) Every 3 Years 1976 Colorectal Cancer Screening Colonoscopy (10 Years) 1976 Annual Physical 1979 DTaP, Tdap and Td Vaccines ( 1 - Tdap) 1995 Hepatitis B Vaccines (1 of 3 - 19+ 3-dose series) 1995 Cervical Cancer Screening Pa p with HPV Testing (Age 30 to 64) Every 5 Years 2006 Cervical Cancer Screening with HPV 2006 Mammogram Screening 2016 COVID-19 Vaccine (2023-2 5 season) 2025 Hepatitis C Completed 08/20/2016 Meningococcal B Vaccine Aged Out No l onger eligible based on patient's age to complete this topic Meningococcal Vaccine Aged Out No elba dennise eligible based on patient's age to complete this topic Pneumococcal Vaccine: Pediat rics (0 to 5 Years) and At-Risk Patients (6 to 49 Years) Aged Out No longer eligi ble based on patient's age to complete this topic RSV Immunizations Under 20 Months Aged Out No longer eligible based on patient's age to complete this topic Procedures Procedure Name Priority Date/Time Associated Diagnosis Comments HEPATITIS A,B,& C Routine 08/20/2016 9:3 0 AM [facility] PROOFER from Last 3 Months or Most Recently Relevant to Health Maintenance Results * HEPATITIS A,B,& C (08/20/2016 9:30 AM [facility] PROOFER) HAV IGM NON-REACTIVE TEST[place] [address] NR [employer] TO EPIC CONVERSION HEPATITIS B SURFACE AG NON-REACTIVE TESTING PERFORMED AT [place] [id number] NR [employer] TO EPIC CONVERSION HEP B SURFACE AB NON-REACTIVE TESTING PERFORMED AT [place] [id number] [employer] TO EPIC CONVERSION HEP B CORE TOTAL AB NON-REACTIVE TESTING PERFORMED AT [place] [id number] NR [employer] TO EPIC CONVERSION HEPATITIS C AB NON-REACTIVE TESTING PERFORMED AT [place] [id number] NR [employer] TO EPIC CONVERSION 08/20/2016 9:30 AM R[facility] PROOFER 08/20/2016 9:30 AM [facility] PROOFER Narrative [employer] TO EPIC CONVERSION - 08/21/2016 7:27 PM [facility] PROOFER Result Communication: Call patient with results us Sami Pelletier MD LABORATORY Final Resul t [employer] TO EPIC CONVERSION from Last 3 Months or Most Recently Relevant to Health Maintenance
== END 2025-05-09 15:40 | disposition home or self-care (01) ==
PROVIDERS: PCP Internal Medicine; Visit Provider Internal Medicine
DX: E05.90 Thyrotoxicosis, unspecified without thyrotoxic crisis or storm (principal); G35 Multiple sclerosis; R90.82 White matter disease, unspecified
CPT/HCPCS: 70553; 76536; A9577